=== PATIENT | male | born 1985 | race American Indian/Alaskan Native ===

== ENCOUNTER 2017-03-31 09:17 | Emergency (ER) | payer OTHER ==
[2017-03-31 09:26] VITALS: BP 132/81
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
== END 2017-03-31 10:29 | disposition home or self-care (01) ==
LOC: ED 09:17
DX: L03.011 Cellulitis of right finger (principal); V89.2XXA Person injured in unspecified motor-vehicle accident, traffic, initial encounter; Y93.9 Activity, unspecified; Y99.9 Unspecified external cause status; Y92.410 Unspecified street and highway as the place of occurrence of the external cause